=== PATIENT | male | born 1940 | race Caucasian/White ===

== ENCOUNTER 2018-07-09 14:03 | Inpatient (IN) | payer BC, MEDICARE ==
[~2018-07-09] VITALS: Ht 182.9 cm; Wt 85.3 kg
[~2018-07-09 14:03] MED LIST: CETI10TA18 PO; DESI25TA16 PO; DONE5TAB34 PO; FENO48TA5 PO; GLIM1TAB3 PO; LITH300T2 PO; METHYFOLATE; QUET25TA34 PO; RAMI2.5C2 PO; SERT25TA5 PO
[2018-07-09] MEDS ORDERED: DONE5TAB34 PO (14:38)
[2018-07-09] MEDS ORDERED: LITH450T2 PO (14:38)
[2018-07-09] MEDS ORDERED: PANT40TA2 PO (14:38)
[2018-07-09] MEDS ORDERED: RISP0.5T20 PO ×2 (14:38)
[2018-07-09] MEDS ORDERED: ASPI81TA31 PO (14:38)
[2018-07-09] MEDS ORDERED: FENO48TA5 PO (14:38)
[2018-07-09] MEDS ORDERED: CETI-102 PO (14:38)
[2018-07-09] MEDS ORDERED: QUET25TA PO (14:38)
[2018-07-09] MEDS ORDERED: LEVO25TA9 PO (14:38)
[2018-07-09] MEDS ORDERED: CYAN10006 PO (14:38)
[2018-07-09] MEDS ORDERED: DESI25TA16 PO (14:38)
[2018-07-09] MEDS ORDERED: DOXY100C2 PO (14:38)
[2018-07-09] MEDS ORDERED: GLIM1TAB3 PO (14:38)
[2018-07-09] MEDS ORDERED: HALOPERIDOL LACTATE 5 MG/1 ML VIAL ONE ×2 (14:40→15:08)
--- NOTE | 2018-07-09 14:40 | NUR ---
pt getting agitatd inspite of all the comfor measures and reorientations. refusing blod draw. pt confused. notified.
[2018-07-09] MEDS ORDERED: LORAZEPAM 2 MG/1 ML VIAL ONE ×2 (14:41→15:08)
[2018-07-09] MEDS ORDERED: HALOPERIDOL LACTATE 5 MG/1 ML VIAL IM ONE ×2 (14:45→15:15)
[2018-07-09] MEDS ORDERED: LORAZEPAM 2 MG/1 ML VIAL IM ONE ×2 (14:45→15:15)
[2018-07-09 15:49] LABS: *BILIRUBIN,URIN NEGATIVE (NEGATIVE); *BLOOD, URINE Trace-intact (NEGATIVE); *CLARITY,URINE CLEAR (CLEAR); *COLOR,URINE YELLOW (YELLOW); *KETONES,URINE NEGATIVE (NEGATIVE); *UROBILINOGEN,URINE 0.2 E.U./dl (NORMAL); LEUKOCYTE ESTERASE ,URINE NEGATIVE (NEGATIVE); NITRITE, URINE NEGATIVE (NEGATIVE); PH,URINE 5.5 (5.0-8.0); UGLUCOSE TRACE (NEGATIVE)
[2018-07-09 15:53] LABS: CARBON DIOXIDE 24 mmol/L (21-32); CHLORIDE 106 mmol/L (98-107); CREATININE 1.9 mg/dL (0.6-1.3); GLUCOSE 200 mg/dL (74-106); UREA NITROGEN, BLOOD 32 mg/dL (7-18)
[2018-07-09 15:54] LABS: BASOPHILS % (AUTO) 0.5 % (0.0-2.0); EOSINOPHILS # (AUTO) 0.2 K/uL (0.0-0.7); EOSINOPHILS % (AUTO) 2.2 % (0.0-7.0); HEMATOCRIT 34.9 % (36.7-47.1); HEMOGLOBIN 11.4 g/dL (12.5-16.3); LYMPHOCYTES # (AUTO) 1.9 K/uL (20.0-40.0); LYMPHOCYTES % (AUTO) 26.2 % (20.5-51.5); MEAN CORPUSCULAR HGB CONC 33 g/dL (32.5-36.3); MEAN CORPUSCULAR VOLUME 91.8 fL (73.0-96.2); MONOCYTES # (AUTO) 0.7 K/uL (2.0-10.0); MONOCYTES % (AUTO) 9.1 % (0.0-11.0); NEUTROPHILS # (AUTO) 4.5 K/uL (1.8-8.9); PLATELET COUNT (AUTO) 279 K/uL (152-348); WHITE BLOOD COUNT (AUTO) 7.3 K/uL (3.6-10.2)
[2018-07-09 15:59] LABS: ALANINE AMINOTRANSFERASE 26 U/L (16-63); ALKALINE PHOSPHATASE 81 U/L (50-136); ASPARTATE AMINOTRANSFERASE 23 U/L (15-37); BILIRUBIN,DIRECT 0.1 mg/dL (0.0-0.2); BILIRUBIN,TOTAL 0.2 mg/dL (0.2-1.0); TOTAL PROTEIN, SERUM 7.2 g/dL (6.4-8.2)
[2018-07-09 16:00] LABS: ETHANOL < 3 MG/DL (0-0)
--- NOTE | 2018-07-09 16:00 | NUR ---
pt resting, arousable, vss.
[2018-07-09 16:07] LABS: WBC,URINE 0-3 /HPF (0-3)
[2018-07-09 16:11] LABS: *AMPHETAMINE, URINE NEGATIVE (NEGATIVE); *BARBITURATE, URINE NEGATIVE (NEGATIVE); *CANNABINOID, URINE NEGATIVE (NEGATIVE); *COCCAINE, URINE NEGATIVE (NEGATIVE); *OPIATE, URINE NEGATIVE (NEGATIVE); *PHENCYCLIDINE SCREEN,URINE NEGATIVE (NEGATIVE)
--- NOTE | 2018-07-09 16:18 | NUR ---
pt medically cleraed, called efraín delacruz for psych eval.
[2018-07-09 16:23] LABS: THYROID STIMULATING HORMONE 0.616 mIU/mL (0.358-3.740)
--- NOTE | 2018-07-09 18:41 | NUR ---
efraín delacruz at bedside for psych eval.
--- NOTE | 2018-07-09 19:15 | NUR ---
Pt noted to be sleeping in [place]outh [place] at this time, easily arousable via verbal and tactile stimuli. VSS.
--- NOTE | 2018-07-09 19:35 | NUR ---
Report given to PATRICIA Navarro.
--- NOTE | 2018-07-09 19:45 | NUR ---
Pt. admitted to MHU , under care of Dr. Preciado/Francis DUNNE
[2018-07-09 19:56] VITALS: BP 157/66
[2018-07-09 20:00] VITALS: BP 157/66
[2018-07-09] MEDS ORDERED: MAGNESIUM HYDROXIDE 30 ML LIQUID UDC PO PRN (20:15)
[2018-07-09] MEDS ORDERED: MAG HYDROX/AL HYDROX/SIMETH 30 ML LIQUID UDC PO PRN (20:15)
--- NOTE | 2018-07-09 21:58 | NUR ---
AT APPROX 2014 ADMITTED 78 YEARS OLD MALE FROM [facility]) TO [facility] ON A 5150 HOLD FOR GD, PER HOLD PT WAS STRIKING OUT AT CAREGIVER AGGRESSIVE AND AGITATED BEHAVIOR. PATIENT WAS MEDICALLY CLEARED AT [facility] ER WERE HE RECEIVED ATIVAN 1MG IM AND HALDOL 5MG IM AT 1445 AND 1515 D/T AGGRESSIVE BX. AGITATION. UPON ADMISSION PATIENT NOTED CALM AND COOPERATIVE WITH ADMISSION PROCESS; HOWEVER, HE REFUSED TO SIGN SOME OF THE ADMISSION PAPER. PATIENT NOTED A/O X 2. EDEMA AND REDNESS NOTED ON BOTH LOWER LEGS (CELLULITIS) SPECIALLY THE RIGHT LOWER LEG. PATIENT WAS ADVISE OF HIS HOLD AND FACE TO FACE ASSESSMENT DONE. PATIENT IS UNDER THE CARE OF DR CULP. WILL CONTINUE TO MONITOR.
[2018-07-10] MEDS: PANTOPRAZOLE SODIUM 40 MG TABLET.DR PO SCH (06:30)
[2018-07-10 07:30] VITALS: BP 136/74
[2018-07-10] MEDS: FENOFIBRATE NANOCRYSTALLIZED 48 MG TABLET PO SCH (07:52)
[2018-07-10] MEDS: LEVOTHYROXINE SODIUM 25 MCG TABLET PO SCH (07:52)
[2018-07-10] MEDS: ASPIRIN 81 MG TAB.CHEW PO SCH (08:18)
[2018-07-10] MEDS: DOXYCYCLINE HYCLATE 100 MG TABLET PO SCH ×2 (08:18→20:19)
[2018-07-10] MEDS: GLIMEPIRIDE 2 MG TABLET PO SCH (08:18)
[2018-07-10] MEDS ORDERED: Medication Not On Formulary EA (Glimepiride 1 MG) PO SCH (09:00)
[2018-07-10 09:32] VITALS: BP 161/78
[2018-07-10 09:33] VITALS: BP 159/79
[2018-07-10 16:00] VITALS: BP 141/60
--- NOTE | 2018-07-10 16:00 | NUR ---
Patient's grandiose behavior more apparent and aggressive at this time. Patient screams loudly, "Get me my cell phone so I can call Fabiano Webb! 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 Get me my cell phone now!"
--- NOTE | 2018-07-10 16:30 | NUR ---
Patient's shouting has de-escalated but grandiose behavior still present. New medications administered (Welcome & Seroquel) per MD orders. Pills crushed in sugar-free chocolate pudding. Patient compliant with medications. No signs of aspiration or medication pocketing.
[2018-07-10] MEDS: QUETIAPINE FUMARATE 25 MG TABLET PO SCH (16:34)
[2018-07-10] MEDS: LITHIUM CARBONATE 300 MG CAPSULE PO SCH ×2 (16:35→20:19)
--- NOTE | 2018-07-10 18:16 | NUR ---
Patient resting comfortably in bed at this time. No signs of agitation, aggression, not shouting. 1:1 sitter at bedside for safety. 2-3 Episodes of grandiose behavior throughout shift but patient is redirectable. High risk for falls - strict fall precautions implemented. Cooperative and compliant with medication regime and medical care. Stable condition. No signs of distress. Safety measures implemented. Will continue to monitor until end of shift.
[2018-07-10] MEDS: LITHIUM CARBONATE 150 MG CAPSULE PO SCH (20:25)
[2018-07-10 21:57] VITALS: BP 124/68
[2018-07-10] MEDS: TEMAZEPAM 7.5 MG CAPSULE PO PRN ×2 (22:22→23:24)
--- NOTE | 2018-07-10 22:25 | NUR ---
PATIENT NOTED RESTLESS, AGITATED, UNABLE TO FALL ASLEEP. HE CONTINUE WITH GRANDIOS DELUSIONAL THINKING. TEMAZEPAM 7.5MG PO PRN WAS GIVEN. WILL CONTINUE TO MONITOR.
--- NOTE | 2018-07-10 23:18 | NUR ---
PATIENT CONTINUE WITH DELUSIONAL THINKING GRANDIOS. HE CONTINUE ASKING FOR HIS PHONE, HE STATED, "I NEED TO CALL MY TROOPS. IT IS IMPORTANT THAT I CALL THEM, THEY ARE LOOKING FOR ME AND I NEED TO LET THEM KNOW WHERE I AM. PATIENT" VERBAL REDIRECTION GIVEN; HOWEVER, HE GOT UPSET AND BANG THE TABLE ONCE WITH CLOSED FISTS. WILL CONTINUE ON 1:1 SUPERVISION, VERBAL REDIRECTION, AND DISTRACTION.
[2018-07-10] MEDS: LORAZEPAM 0.5 MG TABLET PO PRN (23:57)
--- NOTE | 2018-07-11 | NUR ---
PATIENT CONTINUE RESTLESS, AGITATED, CONTINUE WITH DELUSIONAL THINKING, CONTINUE DEMANDING FOR HIS PHONE STATING, "I NEED TO CALL MY TROOPS TO LET THEM KNOW WHERE I AM. RIGHT NOW THEY ARE LOOKING FOR ME." PATIENT WAS REASSURED, REDIRECTED, DISTRACTION PROVIDED. ATIVAN O.5MG PO PRN WAS ALSO GIVEN. WILL CONTINUE WITH 1:1 SUPERVISION.
[2018-07-11] MEDS ORDERED: HALOPERIDOL LACTATE 5 MG/1 ML VIAL IM ONE (02:15)
[2018-07-11] MEDS ORDERED: diphenhydrAMINE 50 MG/1 ML VIAL IM ONE (02:15)
[2018-07-11] MEDS ORDERED: LORAZEPAM 2 MG/1 ML VIAL IM ONE (02:15)
--- NOTE | 2018-07-11 02:25 | NUR ---
PATIENT CONTINUE YELLING, BANGING ON HIS TABLE DEMANDING HIS CELL PHONE, DELUSIONAL. BELLIGERENT, HE STATED, GIVE ME MY PHONE, I NEED TO TELL MY TROOPS THAT YOU KIDNAPPED ME. THEY ARE LOOKING FOR ME AN YOU ALL GOING TO PRISON." PATIENT UNABLE TO BE REDIRECTED. DR CULP WAS NOTIFY AT APPROX 0155, NEW ORDERS OBTAINED TO ADMINISTER HALDOL 5MG IM, ATIVAN 1MG IM AND BENADRYL 25MG IM. ORDERS WERE NOTED AND CARRIED OUT. WILL MONITOR CLOSELY.
--- NOTE | 2018-07-11 03:15 | NUR ---
PATIENT NOTED CALM. NO DELUSIONAL THINKING IS NOTED AT THIS TIME. HE WAS OFFERED WATER AND TO USED THE TOILET. HE REFUSED AT THIS TIME. PRN MEDICATION EFFECTIVE. WILL CONTINUE TO MONITOR CLOSELY. WILL CONTINUE ON 1:1 SUPERVISION.
--- NOTE | 2018-07-11 05:30 | NUR ---
PATIENT IN BED, RESTING COMFORTABLE. NO DELUSIONS THINKING NOTED AT THIS TIME. WILL CONTINUE TO MONITOR.
[2018-07-11 07:30] VITALS: BP 128/62
[2018-07-11] MEDS: PANTOPRAZOLE SODIUM 40 MG TABLET.DR PO SCH (07:30)
[2018-07-11] MEDS: FENOFIBRATE NANOCRYSTALLIZED 48 MG TABLET PO SCH (07:30)
[2018-07-11] MEDS: LEVOTHYROXINE SODIUM 25 MCG TABLET PO SCH (07:30)
[2018-07-11] MEDS: ASPIRIN 81 MG TAB.CHEW PO SCH (08:46)
[2018-07-11] MEDS: QUETIAPINE FUMARATE 25 MG TABLET PO SCH ×3 (08:46→17:58)
[2018-07-11] MEDS: LITHIUM CARBONATE 300 MG CAPSULE PO SCH ×2 (08:47→20:34)
[2018-07-11] MEDS: SERTRALINE HCL 50 MG TABLET PO SCH (08:47)
[2018-07-11] MEDS: CYANOCOBALAMIN 1,000 MCG TABLET PO SCH (08:47)
[2018-07-11] MEDS: CETIRIZINE HCL 10 MG TABLET PO SCH (08:48)
[2018-07-11] MEDS: DOXYCYCLINE HYCLATE 100 MG TABLET PO SCH ×2 (08:48→20:34)
[2018-07-11] MEDS: GLIMEPIRIDE 2 MG TABLET PO SCH (08:54)
--- NOTE | 2018-07-11 16:00 | NUR ---
RECIEVED PATIENT FROM MHU PATIENT RESTING COMFORTABLE IN CHAIR. NO DELUSIONS THINKING NOTED AT THIS TIME. SITTER 1 TO 1 WILL CONTINUE TO MONITOR.
--- NOTE | 2018-07-11 18:47 | NUR ---
END OF SHIFT PATIENT IS A/O 2, NO RESP DISTRESS, NO COMPLAINS AT THE MOMENT, SITTER AT BED SITE, 1 TO 1, COMPLIANT WITH MEDS SAFETY REINFORCED
[2018-07-11 19:14] VITALS: BP 124/51
--- NOTE | 2018-07-11 20:00 | NUR ---
RECEIVED PATIENT AWAKE IN BED WITH SITTER AT BEDSIDE. PATIENT IS ALERT TO SELF. PATIENT IS HAVING DELUSIONAL IDEATIONS AT THIS TIME. VSS. COOPERATIVE WITH CARE AND STAFF. BED ALARM ON. CALL LIGHT IN REACH. ALL NEEDS ATTENDED. WILL CONTINUE TO MONITOR AND ASSESS.
[2018-07-11] MEDS: LITHIUM CARBONATE 150 MG CAPSULE PO SCH (20:35)
[2018-07-11 20:46] VITALS: BP 137/53
[2018-07-11] MEDS: ACETAMINOPHEN 325 MG TABLET PO PRN (21:55)
[2018-07-11] MEDS: TEMAZEPAM 7.5 MG CAPSULE PO PRN (21:56)
--- NOTE | 2018-07-11 22:00 | NUR ---
PATIENT GIVEN RESTORIL 7.5MG PO PRN FOR SLEEP. SITTER AT BEDSIDE. WILL CONTINUE TO MONITOR.
[2018-07-12] MEDS: LORAZEPAM 0.5 MG TABLET PO PRN (01:48)
--- NOTE | 2018-07-12 01:48 | NUR ---
PATIENT AWAKE AND ANXIOUS. PATIENT GIVEN ATIVAN 0.5MG PO PRN. WILL CONTINUE TO MONITOR.
--- NOTE | 2018-07-12 06:00 | NUR ---
PATIENT AWAKE IN BED. SLEPT 5 HOURS THROUGHOUT THE NIGHT. APPROPRIATE WHEN APPROACHED AND COOPERATIVE WITH CARE. C/O PAIN IN BILATERAL LE. CALLED OUT TO DR. AGUIRRE CERTIFIED MASTER LOCKSMITH FOR FURTHER ORDERS. RECEIVED ORDER FOR NORCO. PATIENT GIVEN NORCO 1 TAB PO PRN FOR PAIN. VSS. SITTER AT BEDSIDE. WILL CONTINUE TO MONITOR AND ASSESS.
[2018-07-12] MEDS: HYDROCODONE/APAP 10-325 MG TABLET PO PRN ×4 (06:01→23:56)
[2018-07-12] MEDS: PANTOPRAZOLE SODIUM 40 MG TABLET.DR PO SCH (06:39)
[2018-07-12] MEDS: LEVOTHYROXINE SODIUM 25 MCG TABLET PO SCH (06:39)
--- NOTE | 2018-07-12 07:00 | NUR ---
BEGINNING OF SHIFT PATIENT IS A/O 2, NO RESP DISTRESS, NO COMPLAINS AT THE MOMENT, SITTER AT BED SITE, 1 TO 1, CALM AND COOPERATIVE, HAS SOME DELUSIONAL EPISODES SAFETY REINFORCED
[2018-07-12] MEDS: LITHIUM CARBONATE 300 MG CAPSULE PO SCH ×2 (08:29→20:15)
[2018-07-12] MEDS: CYANOCOBALAMIN 1,000 MCG TABLET PO SCH (08:29)
[2018-07-12] MEDS: DOXYCYCLINE HYCLATE 100 MG TABLET PO SCH ×2 (08:30→20:15)
[2018-07-12] MEDS: GLIMEPIRIDE 2 MG TABLET PO SCH (08:30)
[2018-07-12] MEDS: QUETIAPINE FUMARATE 25 MG TABLET PO SCH ×3 (08:31→17:37)
[2018-07-12] MEDS: SERTRALINE HCL 50 MG TABLET PO SCH (08:31)
[2018-07-12] MEDS: CETIRIZINE HCL 10 MG TABLET PO SCH (08:31)
[2018-07-12] MEDS: ASPIRIN 81 MG TAB.CHEW PO SCH (08:32)
[2018-07-12] MEDS: FENOFIBRATE NANOCRYSTALLIZED 48 MG TABLET PO SCH (08:39)
[2018-07-12] MEDS: ACETAMINOPHEN 325 MG TABLET PO PRN ×2 (08:40→20:21)
[2018-07-12 08:46] VITALS: BP 158/78
[2018-07-12 11:00] VITALS: BP 137/68
[2018-07-12 15:43] VITALS: BP 137/63
--- NOTE | 2018-07-12 18:58 | NUR ---
END OF SHIFT PATIENT A/O 2, APPROPRIATE WHEN APPROACHED AND COOPERATIVE WITH CARE. COMPLAINED OF PAIN TWICE AND PAIN RELIEVED WITH NORCO SUCCESSFULLY. SITTER AT BEDSIDE. SAFETY REINFORCED
[2018-07-12 19:18] VITALS: BP 124/63
[2018-07-12] MEDS: LITHIUM CARBONATE 150 MG CAPSULE PO SCH (20:15)
[2018-07-12 20:53] VITALS: BP 145/57
[2018-07-13] MEDS: TEMAZEPAM 7.5 MG CAPSULE PO PRN ×2 (00:51→22:37)
--- NOTE | 2018-07-13 01:16 | NUR ---
PATIENT AWAKE IN BED. GIVEN RESTORIL 7.5MG PO PRN FOR SLEEP. SITTER AT BEDSIDE. PATIENT HAS DRANK 3 PITCHERS OF WATER AND HAS NOT URINATED. PATIENT IS UNABLE TO URINATE AT THIS TIME BUT HAS THE URGE TO URINATE. PATIENT ALSO FEELS PRESSURE ON LOWER ABDOMEN. NOTIFIED WELT CUTTER AND NURSING FABRICATION SPECIALIST THAT WE ARE UNABLE TO LOCATE BLADDER SCANNER IN HOSPITAL. CALLED OUT TO DR. AGUIRRE FOR FURTHER ORDERS. WILL CONTINUE TO MONITOR.
--- NOTE | 2018-07-13 01:45 | NUR ---
RECEIVED ORDER FROM DR. AGUIRRE, TO INSERT F/C. INSERTED ALTAMIRANO AND RECEIVED 700cc OF CLEAR YELLOW URINE. ALL NEEDS ATTENDED.
[2018-07-13] MEDS: LEVOTHYROXINE SODIUM 25 MCG TABLET PO SCH (06:31)
[2018-07-13] MEDS: PANTOPRAZOLE SODIUM 40 MG TABLET.DR PO SCH (06:31)
[2018-07-13 06:37] LABS: HEMATOCRIT 37.1 % (36.7-47.1); HEMOGLOBIN 12.4 g/dL (12.5-16.3); MEAN CORPUSCULAR HEMOGLOBIN 30.6 uug (23.8-33.4); MEAN CORPUSCULAR HGB CONC 33 g/dL (32.5-36.3); MEAN CORPUSCULAR VOLUME 91.6 fL (73.0-96.2); PLATELET COUNT (AUTO) 305 K/uL (152-348); RED BLOOD CELL COUNT(AUTO) 4.05 MIL/uL (4.06-5.63); WHITE BLOOD COUNT (AUTO) 7.1 K/uL (3.6-10.2)
[2018-07-13 06:38] LABS: BASOPHILS % (AUTO) 0.3 % (0.0-2.0); EOSINOPHILS # (AUTO) 0.3 K/uL (0.0-0.7); EOSINOPHILS % (AUTO) 3.8 % (0.0-7.0); MONOCYTES # (AUTO) 0.6 K/uL (2.0-10.0); MONOCYTES % (AUTO) 8.8 % (0.0-11.0); NEUTROPHILS # (AUTO) 4.2 K/uL (1.8-8.9); NEUTROPHILS % (AUTO) 59.1 % (38.5-71.5)
[2018-07-13 06:44] LABS: ALANINE AMINOTRANSFERASE 27 U/L (16-63); ALKALINE PHOSPHATASE 70 U/L (50-136); ASPARTATE AMINOTRANSFERASE 22 U/L (15-37); BILIRUBIN,TOTAL 0.4 mg/dL (0.2-1.0); CARBON DIOXIDE 29 mmol/L (21-32); CHLORIDE 104 mmol/L (98-107); CREATINE KINASE, TOTAL 153 U/L (39-308); CREATININE 1.8 mg/dL (0.6-1.3); GLUCOSE 89 mg/dL (74-106); PHOSPHOROUS 3.8 mg/dL (2.5-4.9); POTASSIUM 4.4 mmol/L (3.5-5.1); TOTAL PROTEIN, SERUM 7.2 g/dL (6.4-8.2); UREA NITROGEN, BLOOD 23 mg/dL (7-18)
[2018-07-13 07:10] VITALS: BP 151/55
[2018-07-13] MEDS: GLIMEPIRIDE 2 MG TABLET PO SCH (08:10)
[2018-07-13] MEDS: CETIRIZINE HCL 10 MG TABLET PO SCH (08:10)
[2018-07-13] MEDS: QUETIAPINE FUMARATE 25 MG TABLET PO SCH ×3 (08:10→16:58)
[2018-07-13] MEDS: FENOFIBRATE NANOCRYSTALLIZED 48 MG TABLET PO SCH (08:10)
[2018-07-13] MEDS: SERTRALINE HCL 50 MG TABLET PO SCH (08:10)
[2018-07-13] MEDS: ASPIRIN 81 MG TAB.CHEW PO SCH (08:10)
[2018-07-13] MEDS: CYANOCOBALAMIN 1,000 MCG TABLET PO SCH (08:10)
[2018-07-13] MEDS: DOXYCYCLINE HYCLATE 100 MG TABLET PO SCH ×2 (08:11→20:35)
[2018-07-13] MEDS: LITHIUM CARBONATE 300 MG CAPSULE PO SCH ×2 (08:11→20:35)
[2018-07-13] MEDS: LORAZEPAM 0.5 MG TABLET PO PRN ×2 (09:09→16:58)
[2018-07-13] MEDS: HYDROCODONE/APAP 10-325 MG TABLET PO PRN ×2 (09:10→21:43)
[2018-07-13] MEDS ORDERED: MISCELLANEOUS MED XX PRN (10:15)
[2018-07-13 15:13] VITALS: BP 129/58
--- NOTE | 2018-07-13 15:52 | NUR ---
Reached out to facility to retrieve medication, Amiloride. Spoke to Bertha who is in charge of facility. Bertha sent health care coordinator to bring in mediations. Upon arrival, caregiver brought the wrong medication, Glipiride. Caregiver said he can come back tomorrow to being in the correct med. Will follow up and endorse information to nurse.
--- NOTE | 2018-07-13 15:55 | NUR ---
An [facility] nursing [facility], manage Bertha stated that the patient doesn't received amiloride medication at the facility. Nadeen, from pharmacy has been noted. Home notified Doctor, and doctors said he will discontinue this medication. Bertha can be followed up at [phone].
--- NOTE | 2018-07-13 20:13 | NUR ---
patient has been rsting in bed through out the day. patient continues to have flights of ideas and delusions. 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 Patient denies any suicidal ideation. Spoke to daughter, Dr. Ferris about updates of the patient. She is aware and will follow up with his plan of care. Will continue to monitor the patient. Will endorse plan of care to awake overnight monitor.
[2018-07-13 20:30] VITALS: BP 133/64
[2018-07-13] MEDS: LITHIUM CARBONATE 150 MG CAPSULE PO SCH (20:35)
[2018-07-14] MEDS: HYDROCODONE/APAP 10-325 MG TABLET PO PRN ×2 (03:24→14:04)
[2018-07-14 04:00] VITALS: BP 141/60
--- NOTE | 2018-07-14 05:58 | NUR ---
PATIENT SLEPT 4 HOURS AND 45 MINUTES.
[2018-07-14] MEDS: ACETAMINOPHEN 325 MG TABLET PO PRN (06:12)
[2018-07-14] MEDS: LEVOTHYROXINE SODIUM 25 MCG TABLET PO SCH ×2 (06:31→08:38)
[2018-07-14] MEDS: PANTOPRAZOLE SODIUM 40 MG TABLET.DR PO SCH ×2 (06:31→08:38)
[2018-07-14 06:34] LABS: ALANINE AMINOTRANSFERASE 21 U/L (16-63); ALKALINE PHOSPHATASE 71 U/L (50-136); ASPARTATE AMINOTRANSFERASE 18 U/L (15-37); BILIRUBIN,TOTAL 0.3 mg/dL (0.2-1.0); CARBON DIOXIDE 30 mmol/L (21-32); CHLORIDE 107 mmol/L (98-107); CREATININE 1.7 mg/dL (0.6-1.3); GLUCOSE 96 mg/dL (74-106); MAGNESIUM 2.2 mg/dL (1.8-2.4); POTASSIUM 4.5 mmol/L (3.5-5.1); TOTAL PROTEIN, SERUM 7.3 g/dL (6.4-8.2); UREA NITROGEN, BLOOD 29 mg/dL (7-18)
[2018-07-14 06:36] LABS: BASOPHILS % (AUTO) 0.3 % (0.0-2.0); EOSINOPHILS # (AUTO) 0.3 K/uL (0.0-0.7); EOSINOPHILS % (AUTO) 2.9 % (0.0-7.0); HEMOGLOBIN 12.6 g/dL (12.5-16.3); LYMPHOCYTES # (AUTO) 2.3 K/uL (20.0-40.0); LYMPHOCYTES % (AUTO) 25.4 % (20.5-51.5); MEAN CORPUSCULAR HEMOGLOBIN 30.6 uug (23.8-33.4); MEAN CORPUSCULAR HGB CONC 33 g/dL (32.5-36.3); MONOCYTES # (AUTO) 0.8 K/uL (2.0-10.0); MONOCYTES % (AUTO) 8.6 % (0.0-11.0); NEUTROPHILS # (AUTO) 5.6 K/uL (1.8-8.9); NEUTROPHILS % (AUTO) 62.8 % (38.5-71.5); PLATELET COUNT (AUTO) 291 K/uL (152-348); RED BLOOD CELL COUNT(AUTO) 4.14 MIL/uL (4.06-5.63)
[2018-07-14 06:54] LABS: WHITE BLOOD COUNT (AUTO) 8.9 K/uL (3.6-10.2)
--- NOTE | 2018-07-14 07:45 | NUR ---
sbar report received,pt A/A/OX2 , no s/s of distress,denies any pain @ time. 1:1 SITTER AT BEDSIDE.
[2018-07-14] MEDS: QUETIAPINE FUMARATE 25 MG TABLET PO SCH ×3 (08:37→17:15)
[2018-07-14] MEDS: DOXYCYCLINE HYCLATE 100 MG TABLET PO SCH ×2 (08:37→20:12)
[2018-07-14] MEDS: CYANOCOBALAMIN 1,000 MCG TABLET PO SCH (08:37)
[2018-07-14] MEDS: CETIRIZINE HCL 10 MG TABLET PO SCH (08:37)
[2018-07-14] MEDS: ASPIRIN 81 MG TAB.CHEW PO SCH (08:38)
[2018-07-14] MEDS: LITHIUM CARBONATE 300 MG CAPSULE PO SCH (08:38)
[2018-07-14] MEDS: SERTRALINE HCL 50 MG TABLET PO SCH (08:38)
[2018-07-14] MEDS: GLIMEPIRIDE 2 MG TABLET PO SCH (08:38)
[2018-07-14] MEDS: FENOFIBRATE NANOCRYSTALLIZED 48 MG TABLET PO SCH (08:45)
--- NOTE | 2018-07-14 10:52 | NUR ---
Firearms Report: fly worker completed and submitted a [employer] firearms report for a 5250 GD certification.
[2018-07-14 10:54] VITALS: BP 143/61
--- NOTE | 2018-07-14 14:00 | NUR ---
CALL,WAS UPDATED WITH PT.CONDITION AND PLAN OF CARE,REQUESTED TO CALL HER BY .
[2018-07-14 16:06] LABS: ALBUMIN 3.3 g/dL (2.9-4.4); ALPHA-1-GLOBULIN 0.2 g/dL (0.0-0.4); ALPHA-2-GLOBULIN 0.9 g/dL (0.4-1.0); BETA GLOBULIN 1.1 g/dL (0.7-1.3); GLOBULIN, TOTAL 3.2 g/dL (2.2-3.9); M-SPIKE Not Observed g/dL (Not Observed)
[2018-07-14 16:31] VITALS: BP 132/68
--- NOTE | 2018-07-14 17:00 | NUR ---
PT.WAS SEEN BY . WAS ASK TO CALL DAUGHTER JOO .
--- NOTE | 2018-07-14 17:55 | NUR ---
ORDERED TO CALL FOR CLEARANCE FOR LITHIUM FOR PT. WITH ELEVATED CREAT.CALL, ME BACK. WAS PAGED,CALL BACK TOLD THAT WILL CALL BACK. 1809. CALL TOLD THAT WITH ELV.CREAT. NEED TO SWITCH LITHIUM TO OTHER MEDS.LEFT MESSAGE BY GUN STOCKER TO .
[2018-07-14 20:00] VITALS: BP 130/63
--- NOTE | 2018-07-14 20:00 | NUR ---
RECEIVED PATIENT AWAKE IN BED. VERY ELATED WHEN APPROACHED. A/O X2. DENIES PAIN OR DISCOMFORT AT THIS TIME. VSS. SITTER AT BEDSIDE. CALL LIGHT IN REACH. ALL NEEDS ATTENDED. WILL CONTINUE TO MONITOR AND ASSESS.
[2018-07-14] MEDS ORDERED: QUETIAPINE FUMARATE 100 MG TABLET PO SCH (21:00)
[2018-07-15 04:00] VITALS: BP_SYST 107; BP_SYST 140; BP_DIAS 60; BP_DIAS 67
--- NOTE | 2018-07-15 06:02 | NUR ---
PATIENT ASLEEP IN BED. EASILY AROUSABLE. DENIES PAIN OR DISCOMFORT AT THIS TIME. SLEPT 5 HOUR AND 30 MINUTES. SITTER AT BEDSIDE. BED ALARM ON. ALL NEEDS ATTENDED. WILL CONTINUE TO MONITOR.
[2018-07-15] MEDS: PANTOPRAZOLE SODIUM 40 MG TABLET.DR PO SCH ×2 (06:31→06:33)
[2018-07-15] MEDS: LEVOTHYROXINE SODIUM 25 MCG TABLET PO SCH (06:33)
--- NOTE | 2018-07-15 07:35 | NUR ---
BEGINNING OF SHIFT PATIENT IN BED A/O 2. DENIES PAIN OR DISCOMFORT AT THIS TIME. SITTER AT BEDSIDE. BED ALARM ON. SAFETY REINFORCED WILL CONTINUE TO MONITOR.
[2018-07-15 07:43] LABS: BASOPHILS % (AUTO) 0.4 % (0.0-2.0); EOSINOPHILS # (AUTO) 0.2 K/uL (0.0-0.7); EOSINOPHILS % (AUTO) 2.3 % (0.0-7.0); HEMATOCRIT 37.8 % (36.7-47.1); HEMOGLOBIN 12.6 g/dL (12.5-16.3); MEAN CORPUSCULAR HEMOGLOBIN 30.7 uug (23.8-33.4); MEAN CORPUSCULAR HGB CONC 33 g/dL (32.5-36.3); MEAN CORPUSCULAR VOLUME 91.8 fL (73.0-96.2); MONOCYTES # (AUTO) 0.7 K/uL (2.0-10.0); MONOCYTES % (AUTO) 7.8 % (0.0-11.0); NEUTROPHILS # (AUTO) 5.6 K/uL (1.8-8.9); NEUTROPHILS % (AUTO) 65.5 % (38.5-71.5); PLATELET COUNT (AUTO) 294 K/uL (152-348); RED BLOOD CELL COUNT(AUTO) 4.12 MIL/uL (4.06-5.63); WHITE BLOOD COUNT (AUTO) 8.5 K/uL (3.6-10.2)
[2018-07-15 08:20] LABS: CARBON DIOXIDE 26 mmol/L (21-32); CHLORIDE 106 mmol/L (98-107); CREATININE 1.6 mg/dL (0.6-1.3); GLUCOSE 115 mg/dL (74-106); POTASSIUM 4.3 mmol/L (3.5-5.1); UREA NITROGEN, BLOOD 29 mg/dL (7-18)
[2018-07-15] MEDS: ASPIRIN 81 MG TAB.CHEW PO SCH (08:27)
[2018-07-15] MEDS: FENOFIBRATE NANOCRYSTALLIZED 48 MG TABLET PO SCH (08:27)
[2018-07-15] MEDS: CYANOCOBALAMIN 1,000 MCG TABLET PO SCH (08:28)
[2018-07-15] MEDS: DOXYCYCLINE HYCLATE 100 MG TABLET PO SCH ×2 (08:28→21:27)
[2018-07-15] MEDS: SERTRALINE HCL 50 MG TABLET PO SCH (08:28)
[2018-07-15] MEDS: GLIMEPIRIDE 2 MG TABLET PO SCH (08:28)
[2018-07-15] MEDS: CETIRIZINE HCL 10 MG TABLET PO SCH (08:29)
[2018-07-15] MEDS: QUETIAPINE FUMARATE 25 MG TABLET PO SCH ×2 (08:29→16:38)
--- NOTE | 2018-07-15 09:07 | NUR ---
REPORT TO U GIVEN , 0900 MEDS GIVEN PATIENT WENT DOWN STAIRS BY WHEEL CHAIR WITH SITTER
[2018-07-15 12:57] LABS: *BILIRUBIN,URIN NEGATIVE (NEGATIVE); *BLOOD, URINE 1+ (NEGATIVE); *CLARITY,URINE CLEAR (CLEAR); *COLOR,URINE YELLOW (YELLOW); *KETONES,URINE NEGATIVE (NEGATIVE); *UROBILINOGEN,URINE 0.2 E.U./dl (NORMAL); LEUKOCYTE ESTERASE ,URINE TRACE (NEGATIVE); NITRITE, URINE NEGATIVE (NEGATIVE); UGLUCOSE TRACE (NEGATIVE)
[2018-07-15 12:59] LABS: BACTERIA,URINE NONE SEEN /HPF (NONE SEEN); RBC,URINE 0-3 /HPF (0-3); SQUAMOUS EPITHELIAL CELL,UR FEW /HPF (NONE SEEN); WBC,URINE 0-3 /HPF (0-3)
[2018-07-15 15:54] VITALS: BP 117/60
[2018-07-15] MEDS: LORAZEPAM 0.5 MG TABLET PO PRN ×2 (16:37→21:33)
[2018-07-15] MEDS: CARBAMAZEPINE 200 MG TABLET PO SCH (16:37)
[2018-07-15] MEDS ORDERED: CARBAMAZEPINE 100 MG/5 ML GT SCH (17:00)
--- NOTE | 2018-07-15 18:49 | NUR ---
GPS: Nursing Notes: Bladder Scan: Patient is incontinent, urinating on his diaper, bladder scanned 169ml at this time, denies any pain or discomfort, continue to monitor patient, continue with treatment plan.
[2018-07-15 21:01] VITALS: BP 103/64
[2018-07-15] MEDS: QUETIAPINE FUMARATE 100 MG TABLET PO SCH (21:32)
[2018-07-15] MEDS: HYDROCODONE/APAP 10-325 MG TABLET PO PRN (21:35)
[2018-07-15] MEDS: TEMAZEPAM 7.5 MG CAPSULE PO PRN (23:20)
[2018-07-16 07:30] VITALS: BP 160/55
[2018-07-16] MEDS: PANTOPRAZOLE SODIUM 40 MG TABLET.DR PO SCH (08:44)
[2018-07-16] MEDS: SERTRALINE HCL 50 MG TABLET PO SCH (08:44)
[2018-07-16] MEDS: QUETIAPINE FUMARATE 25 MG TABLET PO SCH ×2 (08:44→17:13)
[2018-07-16] MEDS: CYANOCOBALAMIN 1,000 MCG TABLET PO SCH (08:44)
[2018-07-16] MEDS: ASPIRIN 81 MG TAB.CHEW PO SCH (08:45)
[2018-07-16] MEDS: CARBAMAZEPINE 200 MG TABLET PO SCH ×2 (08:45→17:12)
[2018-07-16] MEDS: LEVOTHYROXINE SODIUM 25 MCG TABLET PO SCH (08:45)
[2018-07-16] MEDS: FENOFIBRATE NANOCRYSTALLIZED 48 MG TABLET PO SCH (08:51)
[2018-07-16] MEDS: CETIRIZINE HCL 10 MG TABLET PO SCH (08:51)
[2018-07-16] MEDS: GLIMEPIRIDE 2 MG TABLET PO SCH (08:52)
[2018-07-16] MEDS: DOXYCYCLINE HYCLATE 100 MG TABLET PO SCH ×2 (08:52→20:36)
[2018-07-16 09:00] VITALS: BP 116/53
--- NOTE | 2018-07-16 09:50 | NUR ---
Pt.was pecan picker for CT/ultrasound guided biopsy of the liver,tolerated well,no s/s of distress or pain noted. 1020 all team at the side,pre-procedural site conformation form sing/agree. 1028 started.pt.on monitor -contr.A-fib BP 123/83 hr 95,rr12,Sat 100% on vent:AC 12 tv 550,peep+5,FIO2 30%,tolerated well.Lidocaine HCl 1% given by .1031 biopsy needle in.BP 120/83,hr 99,rr12,Sat 100%.no s/s of distress or pain noted,pt.was placed on RIGHT side per . 1045 BP 121/72 HR 98,RR12,Sat 100%. 1100 BP 128/77 HR 92,RR12,Sat 100% 1105 pt back to room tolerated well,no s/s of distress or pain noted,puncture side no s/s of hematoma or bleeding. SBAR report given to Gregorio GOMEZ and Beverley ravi RN.Per pt.need to be on Right side for 3 hr.endorsed to Gregorio GOMEZ and Beverley ravi RN.
--- NOTE | 2018-07-16 11:39 | NUR ---
Discharge Planning: take away worker left voicemail with patient daughter, Josy Gillis [[phone]], requesting return phone call to discuss patient progress and discharge plan.
[2018-07-16 16:00] VITALS: BP 135/52
[2018-07-16 20:00] VITALS: BP 120/55
[2018-07-16] MEDS: QUETIAPINE FUMARATE 100 MG TABLET PO SCH (20:36)
[2018-07-16] MEDS: TEMAZEPAM 7.5 MG CAPSULE PO PRN (21:34)
[2018-07-17] MEDS: LEVOTHYROXINE SODIUM 25 MCG TABLET PO SCH (06:43)
[2018-07-17] MEDS: FENOFIBRATE NANOCRYSTALLIZED 48 MG TABLET PO SCH (06:43)
[2018-07-17] MEDS: PANTOPRAZOLE SODIUM 40 MG TABLET.DR PO SCH (06:43)
[2018-07-17 07:30] VITALS: BP 167/64
[2018-07-17] MEDS: CARBAMAZEPINE 200 MG TABLET PO SCH ×2 (08:58→17:27)
[2018-07-17] MEDS: CETIRIZINE HCL 10 MG TABLET PO SCH (08:59)
[2018-07-17] MEDS: ASPIRIN 81 MG TAB.CHEW PO SCH (08:59)
[2018-07-17] MEDS: SERTRALINE HCL 50 MG TABLET PO SCH (08:59)
[2018-07-17] MEDS: GLIMEPIRIDE 2 MG TABLET PO SCH (08:59)
[2018-07-17] MEDS: CYANOCOBALAMIN 1,000 MCG TABLET PO SCH (08:59)
[2018-07-17] MEDS: QUETIAPINE FUMARATE 25 MG TABLET PO SCH (08:59)
[2018-07-17] MEDS: LORAZEPAM 0.5 MG TABLET PO PRN (13:44)
--- NOTE | 2018-07-17 15:11 | NUR ---
Gps/Tea Blender- Patient's sister Doctor Kamilla Gillis who has also the DPOA of his health care called, wants to reviewed medications, and progress of patient, present behavior, and the need to hire a caregiver at night if necessary. Encouraged to talk to Psychiatrist wants to review previous medications .
[2018-07-17 16:00] VITALS: BP 117/40
[2018-07-17] MEDS: Z GUARD REMEDY PASTE 57 GM TUBE TOP SCH ×2 (16:30→20:35)
--- NOTE | 2018-07-17 16:58 | NUR ---
Gps/Splicing Supervisor- Episodes of yelling spells for his immediate needs, difficulty redirecting patient yells at the staff, if his needs not met right away, demanding behavior.
[2018-07-17] MEDS ORDERED: QUETIAPINE FUMARATE 25 MG TABLET PO SCH (17:00)
[2018-07-17] MEDS: QUETIAPINE FUMARATE 100 MG TABLET PO SCH ×2 (17:27→20:35)
[2018-07-17 20:50] VITALS: BP 131/56
[2018-07-18] MEDS: LORAZEPAM 0.5 MG TABLET PO PRN ×2 (02:08→21:59)
[2018-07-18] MEDS: HYDROCODONE/APAP 10-325 MG TABLET PO PRN ×2 (02:26→20:56)
--- NOTE | 2018-07-18 02:35 | NUR ---
Patient was agitated and started yelling. Ativan 0.5 mg tab was given. Complained of pain in his legs, unable to rate the pain, Narco 10-325 mg tab was given. Also, complained of dry skin in his upper and lower extremities. Applied moisturizer to the extremities. Continue to monitor.
[2018-07-18] MEDS: LEVOTHYROXINE SODIUM 25 MCG TABLET PO SCH (06:37)
[2018-07-18] MEDS: PANTOPRAZOLE SODIUM 40 MG TABLET.DR PO SCH (06:37)
[2018-07-18] MEDS: FENOFIBRATE NANOCRYSTALLIZED 48 MG TABLET PO SCH (06:38)
[2018-07-18 07:30] VITALS: BP 155/52
[2018-07-18] MEDS: CETIRIZINE HCL 10 MG TABLET PO SCH (08:24)
[2018-07-18] MEDS: CYANOCOBALAMIN 1,000 MCG TABLET PO SCH (08:24)
[2018-07-18] MEDS: ASPIRIN 81 MG TAB.CHEW PO SCH (08:24)
[2018-07-18] MEDS: QUETIAPINE FUMARATE 100 MG TABLET PO SCH ×2 (08:25→17:55)
[2018-07-18] MEDS: CARBAMAZEPINE 200 MG TABLET PO SCH ×2 (08:25→17:55)
[2018-07-18] MEDS: GLIMEPIRIDE 2 MG TABLET PO SCH (08:25)
[2018-07-18] MEDS: Z GUARD REMEDY PASTE 57 GM TUBE TOP SCH ×2 (08:26→20:53)
[2018-07-18] MEDS: SERTRALINE HCL 50 MG TABLET PO SCH (08:26)
--- NOTE | 2018-07-18 11:00 | NUR ---
Gps/Lnn- Patient still yells from time to time to make his needs known to staff, OOB his chair as requested, mod. assist. Patient was informed by Charge Nurse that there in no plan to discharge him today, needed to stay few more days, r/t to episodes of yelling /calling out for needs.
--- NOTE | 2018-07-18 13:47 | NUR ---
Discharge Planning: bilingual patient support caseworker consulted with Dr. Preciado about patient scheduled discharge for today. After consultation, Dr. Preciado has made decision to hold off on discharge due to patient extreme agitation, behavioral lability, and recent medication change. Discharge has been tentatively rescheduled for 07/21/18, pending patient progress. bilingual patient support caseworker and rn charge, Maddie, went to patient room to discuss change in discharge date. bilingual patient support caseworker explained to patient that he would not be discharging today as originally planned due to patient escalated behavior and medication change. Patient became very agitated and verbally abusive telling social services manager that "You fucked up the whole plan on purpose" and demanding that he be released today. bilingual patient support caseworker remained calm and tried to explain reasoning for discharge being rescheduled, but patient remained agitated. bilingual patient support caseworker informed patient that conversation could not be had with patient yelling and screaming and that social services manager would come back at a later time when patient was calmer. As social services manager went to exit room, patient stated "I am ready to talk". bilingual patient support caseworker had brief discussion about discharge plan and patient was more calm and able to listen, however, patient still not agreeable with discharge being moved and remains agitated and verbally abusive. bilingual patient support caseworker informed patient DPOA, Kamilla Gillis [[phone]], of discharge not happening today. Kamilla was agreeable.
[2018-07-18 15:28] VITALS: BP 115/53
--- NOTE | 2018-07-18 15:30 | NUR ---
Gps/Information Technology Technician- After Dr Preciado left , patient stated " i am ready to leave, Doctor just released me just now", when informed patient , Doctor did not write any orders to discharge him today, patient starting to yell at staff , calling them ignorant. Kept up on his arielle-chair by the Nurses station, labile mood.
[2018-07-18 20:32] VITALS: BP 147/63
[2018-07-18] MEDS: QUETIAPINE FUMARATE 200 MG TABLET PO SCH (20:54)
[2018-07-18] MEDS ORDERED: QUETIAPINE FUMARATE 100 MG TABLET PO SCH (21:00)
--- NOTE | 2018-07-18 22:00 | NUR ---
Received pt resting in bed. No acute distress noted. C/o pain, generalized 11/17. PRN [place] given. Denies S/I. Pt is needy. Pt kept on yelling and wants attention right away. Noted pt to be removing his diaper 2x. PRN Ativan given as ordered. Safety measures maintained. Will continue to monitor.
[2018-07-18] MEDS: TEMAZEPAM 7.5 MG CAPSULE PO PRN (23:36)
[2018-07-19] MEDS: LEVOTHYROXINE SODIUM 25 MCG TABLET PO SCH (06:42)
[2018-07-19] MEDS: PANTOPRAZOLE SODIUM 40 MG TABLET.DR PO SCH (06:42)
[2018-07-19 07:30] VITALS: BP 120/66
[2018-07-19] MEDS: FENOFIBRATE NANOCRYSTALLIZED 48 MG TABLET PO SCH (08:31)
[2018-07-19] MEDS: ASPIRIN 81 MG TAB.CHEW PO SCH (08:31)
[2018-07-19] MEDS: QUETIAPINE FUMARATE 100 MG TABLET PO SCH ×2 (08:31→17:35)
[2018-07-19] MEDS: CYANOCOBALAMIN 1,000 MCG TABLET PO SCH (08:31)
[2018-07-19] MEDS: CARBAMAZEPINE 200 MG TABLET PO SCH ×2 (08:31→17:35)
[2018-07-19] MEDS: SERTRALINE HCL 50 MG TABLET PO SCH (08:31)
[2018-07-19] MEDS: GLIMEPIRIDE 2 MG TABLET PO SCH (08:32)
[2018-07-19] MEDS: CETIRIZINE HCL 10 MG TABLET PO SCH (08:32)
[2018-07-19] MEDS: Z GUARD REMEDY PASTE 57 GM TUBE TOP SCH ×2 (08:33→20:20)
[2018-07-19 16:00] VITALS: BP 138/64
[2018-07-19 19:59] VITALS: BP 149/57
[2018-07-19] MEDS: QUETIAPINE FUMARATE 200 MG TABLET PO SCH (20:20)
[2018-07-19] MEDS: TEMAZEPAM 7.5 MG CAPSULE PO PRN (22:45)
[2018-07-20] MEDS: LEVOTHYROXINE SODIUM 25 MCG TABLET PO SCH (06:33)
[2018-07-20] MEDS: PANTOPRAZOLE SODIUM 40 MG TABLET.DR PO SCH (06:33)
--- NOTE | 2018-07-20 06:40 | NUR ---
GPS: REMAIN COOPERATIVE WITH MEDICATIONS AND CARE. CONFUSED AND NEEDY.OCC YELLING TO STAFF FOR HELP. SHOWERED THIS MORNING. SLEPT 6 HRS AFTER SLEEPING MEDICATION GIVEN. CONTINUE PLAN OF CARE.
[2018-07-20] MEDS: FENOFIBRATE NANOCRYSTALLIZED 48 MG TABLET PO SCH (07:30)
[2018-07-20 08:02] VITALS: BP 159/72
[2018-07-20] MEDS: SERTRALINE HCL 50 MG TABLET PO SCH (08:40)
[2018-07-20] MEDS: LORAZEPAM 0.5 MG TABLET PO PRN ×2 (08:41→17:09)
[2018-07-20] MEDS: CARBAMAZEPINE 200 MG TABLET PO SCH ×2 (08:41→17:08)
[2018-07-20] MEDS: QUETIAPINE FUMARATE 100 MG TABLET PO SCH ×2 (08:41→17:08)
[2018-07-20] MEDS: GLIMEPIRIDE 2 MG TABLET PO SCH (08:44)
[2018-07-20] MEDS: CYANOCOBALAMIN 1,000 MCG TABLET PO SCH (08:44)
[2018-07-20] MEDS: CETIRIZINE HCL 10 MG TABLET PO SCH (08:44)
[2018-07-20] MEDS: ASPIRIN 81 MG TAB.CHEW PO SCH (09:00)
[2018-07-20] MEDS: Z GUARD REMEDY PASTE 57 GM TUBE TOP SCH ×2 (09:00→20:24)
[2018-07-20 16:45] VITALS: BP 115/57
[2018-07-20 20:24] VITALS: BP 109/65
[2018-07-20] MEDS: QUETIAPINE FUMARATE 200 MG TABLET PO SCH (20:24)
[2018-07-21] MEDS: LORAZEPAM 0.5 MG TABLET PO PRN ×3 (02:25→13:27)
--- NOTE | 2018-07-21 06:22 | NUR ---
Lying in bed refusing to use bedpan states I just want to go in my diaper. Total care pt. c/o anxiety at 0230 given ativan 0.5 mg po kymberly well. Diaper change x4. Siderails up bed in lowest position. Slept 7.3 hr during the shift.
[2018-07-21 07:30] VITALS: BP 122/65
[2018-07-21 07:42] LABS: BASOPHILS % (AUTO) 0.3 % (0.0-2.0); EOSINOPHILS % (AUTO) 2.1 % (0.0-7.0); HEMATOCRIT 36.1 % (36.7-47.1); HEMOGLOBIN 11.9 g/dL (12.5-16.3); LYMPHOCYTES % (AUTO) 33.8 % (20.5-51.5); MEAN CORPUSCULAR HEMOGLOBIN 30.2 uug (23.8-33.4); MEAN CORPUSCULAR HGB CONC 33 g/dL (32.5-36.3); MEAN CORPUSCULAR VOLUME 91.2 fL (73.0-96.2); MONOCYTES % (AUTO) 7.5 % (0.0-11.0); NEUTROPHILS % (AUTO) 56.3 % (38.5-71.5); PLATELET COUNT (AUTO) 239 K/uL (152-348); RED BLOOD CELL COUNT(AUTO) 3.95 MIL/uL (4.06-5.63); WHITE BLOOD COUNT (AUTO) 7.9 K/uL (3.6-10.2)
[2018-07-21 07:43] LABS: EOSINOPHILS # (AUTO) 0.2 K/uL (0.0-0.7); LYMPHOCYTES # (AUTO) 2.7 K/uL (20.0-40.0); MONOCYTES # (AUTO) 0.6 K/uL (2.0-10.0); NEUTROPHILS # (AUTO) 4.4 K/uL (1.8-8.9)
[2018-07-21 07:45] LABS: CARBON DIOXIDE 23 mmol/L (21-32); CHLORIDE 108 mmol/L (98-107); CREATININE 1.8 mg/dL (0.6-1.3); GLUCOSE 124 mg/dL (74-106); MAGNESIUM 2.4 mg/dL (1.8-2.4); PHOSPHOROUS 3.3 mg/dL (2.5-4.9); POTASSIUM 4.1 mmol/L (3.5-5.1); UREA NITROGEN, BLOOD 29 mg/dL (7-18)
[2018-07-21] MEDS: LEVOTHYROXINE SODIUM 25 MCG TABLET PO SCH (07:52)
[2018-07-21] MEDS: PANTOPRAZOLE SODIUM 40 MG TABLET.DR PO SCH (07:53)
[2018-07-21] MEDS: FENOFIBRATE NANOCRYSTALLIZED 48 MG TABLET PO SCH (07:58)
[2018-07-21] MEDS: QUETIAPINE FUMARATE 100 MG TABLET PO SCH ×2 (08:34→16:21)
[2018-07-21] MEDS: ASPIRIN 81 MG TAB.CHEW PO SCH (08:35)
[2018-07-21] MEDS: CYANOCOBALAMIN 1,000 MCG TABLET PO SCH (08:35)
[2018-07-21] MEDS: CARBAMAZEPINE 200 MG TABLET PO SCH ×2 (08:35→16:16)
[2018-07-21] MEDS: CETIRIZINE HCL 10 MG TABLET PO SCH (08:36)
[2018-07-21] MEDS: GLIMEPIRIDE 2 MG TABLET PO SCH (08:36)
[2018-07-21] MEDS: Z GUARD REMEDY PASTE 57 GM TUBE TOP SCH ×2 (08:40→20:14)
--- NOTE | 2018-07-21 12:03 | NUR ---
Discharge Planning: general scrap worker facilitated conversation with patient regarding discharge plan. Patient was tentatively scheduled to DC today, however, due to patient manic, hyperverbal, paranoid, and verbally abusive behavior, patient was not discharged. general scrap worker informed patient of this information and patient stated "you are part of a conspiracy to keep me here". Patient further believes that he is being held "hostage" and states that "Fabiano Webb will come down on you for keeping me here". general scrap worker attempted to reason with patient but no avail. general scrap worker then inquired why patient is refusing to use the bathroom and only using diapers. Patient states "I don't know how [to use bathroom]...no one taught me". general scrap worker confronted patient that he used bathroom at his board and care prior to admission. Patient again repeated "I don't know how [to use bathroom]...no one taught me". Patient is perceived to be manipulative. general scrap worker will continue to remain available to patient and follow-up with patient family and board and care routinely.
--- NOTE | 2018-07-21 13:45 | NUR ---
received patient alert on bed, patient been needy , attention seeking, delusion of grandeurs giving out cars to staff, patient yelling, and easily agitated, prn medication given as ordered, very poor insight of his condition, continue monitor patient
[2018-07-21 15:39] VITALS: BP 119/61
--- NOTE | 2018-07-21 17:15 | NUR ---
Discharge Planning: out of school hours care worker called and spoke with patient daughter/DPOA, Nitesh [[phone]], regarding discharge planning. out of school hours care worker facilitated discussion about patient being discharged soon. Per Nitesh, she is in agreement with this plan for patient to discharge back to his board and care with support. out of school hours care worker provided Nitesh with a list of Medicare accepting RADIAL DRILL OPERATOR's in patient vicinity where he can receive psychosocial support. Nitesh has agreed to call for appointment. Nitesh also requested that patient receive a psychologist consult. out of school hours care worker has asked Ilana Hernández to order a psychologist consult for patient. out of school hours care worker will continue to follow-up with patient and form a safe and proper discharge.
[2018-07-21] MEDS: QUETIAPINE FUMARATE 200 MG TABLET PO SCH (20:13)
[2018-07-21 20:26] VITALS: BP 138/52
[2018-07-21] MEDS: TEMAZEPAM 7.5 MG CAPSULE PO PRN (21:24)
--- NOTE | 2018-07-22 04:37 | NUR ---
Patient received in bed, AAO x3, Delusion of receiving order from the god to give everybody here a brand new car. No sign of acute distress or SOB was noted. Pleasant upon approach, cooperative and calm. Complaint with medication. Asked for sleeping pill, Restoril 7.5 mg tab given, effective. Patient was stable and had a good sleep last night. All medication given and well tolerated. Safety measures maintained. Will continue to monitor and endorse to the day shift nurse accordingly.
[2018-07-22] MEDS: LEVOTHYROXINE SODIUM 25 MCG TABLET PO SCH (06:53)
[2018-07-22] MEDS: PANTOPRAZOLE SODIUM 40 MG TABLET.DR PO SCH (06:53)
[2018-07-22] MEDS: FENOFIBRATE NANOCRYSTALLIZED 48 MG TABLET PO SCH (06:56)
[2018-07-22 07:30] VITALS: BP 160/77
[2018-07-22] MEDS: ASPIRIN 81 MG TAB.CHEW PO SCH (09:43)
[2018-07-22] MEDS: CARBAMAZEPINE 200 MG TABLET PO SCH ×2 (09:43→17:24)
[2018-07-22] MEDS: CYANOCOBALAMIN 1,000 MCG TABLET PO SCH (09:43)
[2018-07-22] MEDS: CETIRIZINE HCL 10 MG TABLET PO SCH (09:44)
[2018-07-22] MEDS: GLIMEPIRIDE 2 MG TABLET PO SCH (09:44)
[2018-07-22] MEDS: QUETIAPINE FUMARATE 100 MG TABLET PO SCH ×2 (10:16→17:24)
[2018-07-22] MEDS: LORAZEPAM 0.5 MG TABLET PO PRN (10:17)
--- NOTE | 2018-07-22 10:35 | NUR ---
Discharge planning: sawmill relief worker received discharge orders from Dr. Preciado to initiate DC plan for today. sawmill relief worker called patient DPOA/daughter, Nitesh [[phone]], and left a voicemail at approximately 10:19am informing her of patient discharge and requesting a call back no later than 2:00pm. sawmill relief worker then called and spoke with patient sister/DPOA, Kamilla [[phone]], informing her of patient discharge. Kamilla stated that she is unsure if patient can go back to board and care due to no "behavioral support" at night at board and care. sawmill relief worker reminded Kamilla of previous conversation had which ended with Kamilla stating she and Nitesh would look for caregivers for patient. Patient lives at a board and care with nursing and caregiving support. Kamilla then became [place] talk [place]" because she is "unavailable" and she instructed social media content manager to call Nitesh as she is the one "handling the discharge". sawmill relief worker informed Kamilla that a voicemail has already been left with Nitesh. sawmill relief worker will continue to follow-up with Nitesh. sawmill relief worker then called and left a voicemail with Bertha [[phone]], director at [facility], informing her of patient scheduled discharge for today. sawmill relief worker currently awaiting call back.
[2018-07-22] MEDS: Z GUARD REMEDY PASTE 57 GM TUBE TOP SCH ×2 (11:06→21:15)
--- NOTE | 2018-07-22 15:18 | NUR ---
Discharge Planning: car worker called left 3rd voicemail with patient daughter/DPJER, Nitesh [[phone]], regarding discharge of patient at approximately 2:40pm. car worker informed Nitesh that patient would discharge tomorrow [07/23/2018] and that if she disagreed with this plan to call geriatric social worker by 9:00am tomorrow. car worker received call back from patient daughter/DPJER, Nitesh [[phone]], apologizing for not returning call sooner. Per Nitesh, she was in class all day. Nitesh states she is in agreement with discharge of patient tomorrow, 07/23/2018, back to [facility] [ [address], [place] [address]; ]. Nitesh is in agreement with patient being transported by patient friend, James [[phone]]. Nitesh requested information about [facility] in [facility] per a conversation with Dr. Preciado. car worker provided Nitesh with [facility] [[facility], [place] [address]; ] information via e-mail as Nitesh lives in [place]. car worker then contacted patient friend, James, who is in agreement with transporting patient back to [facility]. car worker also called and informed [facility] Director, Bertha [[phone]] of patient scheduled discharge tomorrow. Bertha is in agreement.
[2018-07-22 16:32] VITALS: BP 141/55
--- NOTE | 2018-07-22 18:42 | NUR ---
Patient remained in bed rest through out the shift. Patient is able to verbalize needs, and needs were met and attended to. Patient has grandiose thoughts, stating he has won the lottery and ill be giving everyone a car. Also he is an import individual, and that he is a kernel." Patient has episodes of aggressive behavior followed by labile moods showing calm behavior. Patient continues to shout and yell at nurses and staff members. Patient although is compliant with medication administration when reoriented and direst with the risks and benfits of medication administration. Will continue to monitor and endorse POC to manufacturing supervisor 2nd shift.
[2018-07-22 20:00] VITALS: BP 141/49
[2018-07-22] MEDS: QUETIAPINE FUMARATE 200 MG TABLET PO SCH (21:11)
[2018-07-23] MEDS: HYDROCODONE/APAP 10-325 MG TABLET PO PRN (03:20)
[2018-07-23] MEDS: PANTOPRAZOLE SODIUM 40 MG TABLET.DR PO SCH (06:57)
[2018-07-23] MEDS: LEVOTHYROXINE SODIUM 25 MCG TABLET PO SCH (06:57)
[2018-07-23] MEDS: FENOFIBRATE NANOCRYSTALLIZED 48 MG TABLET PO SCH (06:59)
[2018-07-23 07:30] VITALS: BP 142/74
[2018-07-23] MEDS: GLIMEPIRIDE 2 MG TABLET PO SCH (08:05)
[2018-07-23] MEDS: CETIRIZINE HCL 10 MG TABLET PO SCH (08:08)
[2018-07-23] MEDS: ASPIRIN 81 MG TAB.CHEW PO SCH (08:08)
[2018-07-23] MEDS: CARBAMAZEPINE 200 MG TABLET PO SCH (08:09)
[2018-07-23] MEDS: QUETIAPINE FUMARATE 100 MG TABLET PO SCH (08:09)
[2018-07-23] MEDS: CYANOCOBALAMIN 1,000 MCG TABLET PO SCH (08:10)
[2018-07-23] MEDS: Z GUARD REMEDY PASTE 57 GM TUBE TOP SCH (08:11)
--- NOTE | 2018-07-23 09:32 | NUR ---
DISCHARGE NOTE: [facility] [[address], [place] [address]Yhtqr: ]. Transportation will be provided by James [[phone]], patient friend, at 11:00am. Patient is alert and oriented x3, denies SI/HI, and is able to plan for self-care. dam worker called and spoke with patient daughter/DPOA, Nitesh [[phone]], informing her of patient discharge. Patient currently follows-up with outpatient psychiatrist, Dr. Higinio Leger [[address], [place] [address]; ]. dam worker has encouraged family to make a follow-up appointment for patient within seven days of discharge. In case patient is unable to make an appointment with outpatient psychiatrist, patient has been provided with a referral to [facility] [[address] [place] [address]; ] where patient can walk-in for appointment Saturday thru Saturday anytime between 8:00pm-5:00pm. Patient also follows-up outpatient with his primary care physician, [[address] [place] [address]; Phone 1: ]. Continuing care packets have been faxed to physicians. Patient has also been provided with a list of Medicare accepting licensed clinical social media specialist in the [facility]. Patient is aware and agreeable with discharge plan. Patient was provided with outpatient mental health resources to [facility] [ ], [facility] [ ], and the National Suicide Prevention Lifeline [ ]. dam worker to arrange home health for patient and follow-up with agency name. Addendum: 07/23/18 at 1117 by ARAVIND BRICE SW dam worker faxed home health referral to [facility] [[address], [place] [address]; ] per family request. dam worker awaiting call back from patient day coordinatorScott. Addendum: 07/23/18 at 1535 by ARAVIND BRICE SW dam worker received confirmation from Scott, patient day coordinator at [facility], that patient has been accepted for home health services and that start of care will begin tomorrow, 07/24/2018.
--- NOTE | 2018-07-23 11:40 | NUR ---
Patient discharged back to his board and care, [facility] [[address] [place], [place] [address]Fbmke: ]. Transportation will be provided by James [[phone]], patient friend, at 11:00am. Patient is alert and oriented x3, denies SI/HI, and is able to plan for self-care. family worker called and spoke with patient daughter/DPOA, Nitesh [[phone]], informing her of patient discharge. Patient currently follows-up with outpatient psychiatrist, Dr. Higinio Leger [[address], [place] [address]; ]. family worker has encouraged family to make a follow-up appointment for patient within seven days of discharge. In case patient is unable to make an appointment with outpatient psychiatrist, patient has been provided with a referral to [facility] [ [place] [address]; ] where patient can walk-in for appointment Saturday thru Saturday anytime between 8:00pm-5:00pm. Patient also follows-up outpatient with his primary care physician, [[address] [place] [address]; Phone 1: ]. Continuing care packets have been faxed to physicians. Patient has also been provided with a list of Medicare accepting licensed clinical bilingual social worker in the [facility]. Patient is aware and agreeable with discharge plan. Patient was provided with outpatient mental health resources to [facility] [ ], [facility] [ ], and the National Suicide Prevention Lifeline [ ]. family worker to arrange home health for patient and follow-up with agency name. Patient discharged with exit care package, along with valuabel and belongings. Patient is in stable conditon and denies any pain or discomfort. Patient has good understanding of discharge instruction.
--- NOTE | 2018-07-23 12:14 | NUR ---
PT IS BEING DISCHARGED TO [facility], BEING PICKED UP BY STAFF. NO DISTRESS, VS ARE STABLE. PT'S SISTER AND DPOA KIM BRO IS AWARE. PT IS WILLING TO GO. PRESCRIPTIONS ARE GIVEN. DISCHARGE INSTRUCTIONS ARE GIVEN. ALL BELONGINGS RETURNED AND FORMS SIGNED.
== END 2018-07-23 12:00 | disposition home health service (06) | DRG 885 ==
LOC: ER 14:03 → GPS 19:38 → GPSOV 07-11 16:10 → MED 07-13 17:59 → GPSOV 07-13 18:41 → GPS 07-15 09:00
PROVIDERS: ADMIT Psychiatry & Neurology Psychiatry; ATTEND Hospitalist
DX: F31.2 Bipolar disorder, current episode manic severe with psychotic features (principal); N18.9 Chronic kidney disease, unspecified; L03.115 Cellulitis of right lower limb; F02.81 Dementia in other diseases classified elsewhere, unspecified severity, with behavioral disturbance; G93.40 Encephalopathy, unspecified; G31.83 Neurocognitive disorder with Lewy bodies; E03.9 Hypothyroidism, unspecified; E11.22 Type 2 diabetes mellitus with diabetic chronic kidney disease; Z79.84 Long term (current) use of oral hypoglycemic drugs; I12.9 Hypertensive chronic kidney disease with stage 1 through stage 4 chronic kidney disease, or unspecified chronic kidney disease; Z87.820 Personal history of traumatic brain injury; F41.9 Anxiety disorder, unspecified; Z79.82 Long term (current) use of aspirin; Z79.899 Other long term (current) drug therapy; Z79.890 Hormone replacement therapy; Z86.73 Personal history of transient ischemic attack (TIA), and cerebral infarction without residual deficits
CPT/HCPCS: 36415; 70030-TC; 70450; 71045; 80307; 83735; 83970; 84100; 84155; 84165; 84443; 85025; 87086; 93005; 97110; 97116; 97530; A4663; C1758; G0480; J1200; J1630; J2060